=== PATIENT | female | born 1965 | race American Indian/Alaskan Native ===

== ENCOUNTER 2018-01-19 14:19 | Emergency (ER) | payer MEDICAID ==
--- NOTE | 2018-01-19 15:14 | Emergency Department Report ---
Chief Complaint: Chest Pain Stated Complaint: CHEST PAIN Time Seen by Provider: 01/19/18 15:08 - HPI History of Present Illness: 52-year-old female presents to the emergency department with complaint of midsternal chest pain with some radiation towards the back that worsens when she is taking deep breaths. This is been going on for about 4-5 days. She went to see her primary care physician, Dr. Juárez, who diagnosed her with bronchitis and placed her on steroids and antibiotics. However she has been taking her medications compliantly without any relief. She does have a past medical history of 3 different pulmonary embolisms but she is currently on anticoagulation and has been compliant with this medication as well. No recent travel or sick contacts at home. She does have a trust manager through [facility] but has not seen them in a while. - ROS Review of Systems: Positive for chest pain, cough, shortness of breath, back pain Negative for fever, nausea, vomiting, diaphoresis. - Exam Vital Signs: Vital Signs 01/19/18 14:29 Temperature 99.7 F H Pulse Rate 108 H Respiratory 20 Rate Blood Pressure 141/99 O2 Sat by Pulse 100 Oximetry Physical Exam: Heart and lung sounds are normal to auscultation. Chest pain is not reproducible to palpation of the chest wall. MSE screening note: Focused history and physical exam performed. Due to findings the following was ordered: The EKG does not show any signs of ST elevation MD, ischemia or dysrhythmia. The patient will be moved over to the main side of the emergency department. I have ordered a CBC, CMP, serial troponins and a x-ray of the chest. ED Disposition for MSE Condition: Stable Referrals: PRIMARY CARE, [Primary Care Provider] - 3-5 Days
[2018-01-19 15:33] LABS: Basophils % (Auto) 0.3 % (0.0-1.8); Eosinophils % (Auto) 0.1 % (0.0-4.3); Hematocrit 35.8 % (30.3-42.9); Lymphocytes # (Auto) 1.1 K/mm3 (1.2-5.4); Lymphocytes % (Auto) 10.8 % (13.4-35.0); Mean Corpuscular HGB Conc 34 % (30-34); Mean Corpuscular Hemoglobin 28 pg (28-32); Mean Corpuscular Volume 85 fl (79-97); Monocytes # (Auto) 0.2 K/mm3 (0.0-0.8); Monocytes % (Auto) 2.1 % (0.0-7.3); Platelet Count 342 K/mm3 (140-440); Red Blood Count 4.23 M/mm3 (3.65-5.03)
--- NOTE | 2018-01-19 15:57 | XRay Report ---
FINAL REPORT PROCEDURE: XR CHEST ROUTINE 2V TECHNIQUE: PA and lateral chest radiographs were obtained. CPT 70717 HISTORY: Chest Pain COMPARISON: No prior studies are available for comparison. FINDINGS: Heart: Normal. Mediastinum/Vessels: Normal. Lungs/Pleural space: No infiltrate, effusion, or pneumothorax. Bony thorax: No acute osseous abnormality. Other: IMPRESSION: No radiographic evidence of acute abnormality.
[2018-01-19 16:26] LABS: Alanine Aminotransferase 10 units/L (7-56); Albumin 4.3 g/dL (3.9-5); BUN/Creatinine Ratio 11; Blood Urea Nitrogen 9 mg/dL (7-17); Calcium 9.4 mg/dL (8.4-10.2); Hemolysis Index 1
[2018-01-19] MEDS ORDERED: ASPIRIN PO ONE (18:33)
--- NOTE | 2018-01-19 18:38 | Emergency Department Report ---
<GIUSEPPE MARTIN - Last Filed: 01/19/18 19:54> ED Chest Pain HPI - General Chief Complaint: Chest Pain Stated Complaint: CHEST PAIN Time Seen by Provider: 01/19/18 15:08 Source: patient Mode of arrival: Ambulatory Limitations: No Limitations - History of Present Illness MD Complaint: chest pain -: Gradual Onset: during rest Pain Location: substernal Pain Radiation: none Severity: moderate Severity scale (0 -10): 5 Quality: sharp Consistency: constant Improves With: nothing Worsens With: nothing re: denies: nausea, vomting, diaphoresis Other Symptoms: cough Treatments Prior to Arrival: none Aspirin use within the Past 7 Days: (0) No - Related Data On Oral Contraceptives: No Home Medications Medication Instructions Recorded Confirmed Last Taken LORazepam 0.5 mg PO Q8H PRN 06/05/13 01/19/18 Unknown Oxycodone HCl/Acetaminophen 7.5 mg PO TID PRN 08/13/15 01/19/18 Unknown [Percocet 7.5/325 mg] Sertraline [Zoloft] 50 mg PO QDAY 08/13/15 01/19/18 Unknown ALBUTEROL Inhaler [Proair] 2 puff IH QID PRN 01/19/18 01/19/18 Unknown Cyanocobalamin [Vitamin B-12] 1,000 mcg IM QMONTH 01/19/18 01/19/18 01/05/18 Rivaroxaban [Xarelto] 20 mg PO QDAY 01/19/18 01/19/18 Unknown Topiramate [Topamax] 100 mg PO BID 01/19/18 01/19/18 Unknown Allergies Allergy/AdvReac Type Severity Reaction Status Date / Time methylphenidate HCl Allergy Dizziness Verified 01/19/18 14:29 [From Ritalin] metoclopramide HCl AdvReac Unknown Verified 01/19/18 14:29 [From Reglan] morphine AdvReac Nausea Verified 01/19/18 14:29 Heart Score - HEART Score History: Moderately suspicious EKG: Normal Age: 45-65 Risk factors: 1-2 risk factors Troponin: < normal limit HEART Score: 3 - Critical Actions Critical Actions: 0-3 pts:0.9-1.7%risk of adverse cardiac event.Candidate for discharge ED Review of Systems ROS: Stated complaint: CHEST PAIN Other details as noted in HPI Comment: All other systems reviewed and negative Constitutional: denies: chills, fever Eyes: denies: eye pain ENT: denies: ear pain Respiratory: cough, shortness of breath Cardiovascular: chest pain, palpitations Endocrine: no symptoms reported Gastrointestinal: denies: abdominal pain, nausea, vomiting, diarrhea Genitourinary: denies: urgency, dysuria Musculoskeletal: denies: back pain, joint swelling Skin: denies: rash, lesions Neurological: denies: headache, weakness Psychiatric: denies: anxiety, depression Hematological/Lymphatic: denies: easy bleeding, easy bruising ED Past Medical Hx - Past Medical History Hx Hypertension: Yes Hx Pulmonary Embolism: Yes Hx GERD: Yes - Surgical History Hx Cholecystectomy: Yes Hx Breast Surgery: Yes Additional Surgical History: Hernia repair - Social History Smoking Status: Never Smoker Substance Use Type: None - Medications Home Medications: Home Medications Medication Instructions Recorded Confirmed Last Taken Type LORazepam 0.5 mg PO Q8H PRN 06/05/13 01/19/18 Unknown History Oxycodone HCl/Acetaminophen 7.5 mg PO TID PRN 08/13/15 01/19/18 Unknown History [Percocet 7.5/325 mg] Sertraline [Zoloft] 50 mg PO QDAY 08/13/15 01/19/18 Unknown History ALBUTEROL Inhaler [Proair] 2 puff IH QID PRN 01/19/18 01/19/18 Unknown History Cyanocobalamin [Vitamin B-12] 1,000 mcg IM QMONTH 01/19/18 01/19/18 01/05/18 History Rivaroxaban [Xarelto] 20 mg PO QDAY 01/19/18 01/19/18 Unknown History Topiramate [Topamax] 100 mg PO BID 01/19/18 01/19/18 Unknown History ED Physical Exam - General Limitations: No Limitations General appearance: alert, in no apparent distress - Head Head exam: Present: atraumatic, normocephalic, normal inspection - Eye Eye exam: Present: normal appearance, PERRL, EOMI Pupils: Present: normal accommodation - ENT ENT exam: Present: normal exam, normal orophraynx, mucous membranes moist - Neck Neck exam: Present: normal inspection, full ROM. Absent: tenderness - Respiratory Respiratory exam: Present: normal lung sounds bilaterally. Absent: respiratory distress, wheezes, rales, rhonchi, stridor - Cardiovascular Cardiovascular Exam: Present: normal rhythm, tachycardia, normal heart sounds - GI/Abdominal GI/Abdominal exam: Present: soft, normal bowel sounds. Absent: distended, tenderness, guarding, rebound - Extremities Exam Extremities exam: Present: normal inspection, full ROM, normal capillary refill - Back Exam Back exam: Present: normal inspection, full ROM - Neurological Exam Neurological exam: Present: alert, oriented X3, CN II-XII intact - Psychiatric Psychiatric exam: Present: normal affect, normal mood - Skin Skin exam: Present: warm, dry, intact, normal color. Absent: rash ED Course Vital Signs 01/19/18 01/19/18 01/19/18 14:29 20:34 20:45 Temperature 99.7 F H Pulse Rate 108 H 73 74 Respiratory 20 14 19 Rate Blood Pressure 141/99 120/78 O2 Sat by Pulse 100 99 Oximetry 01/19/18 01/19/18 21:00 21:33 Temperature Pulse Rate 78 78 Respiratory 16 18 Rate Blood Pressure 120/78 O2 Sat by Pulse 100 99 Oximetry - Reevaluation(s) Reevaluation #1: 01/19/18 19:54 Patient care was transitioned to Dr Peguero pending CTA chest with IV contrast. Patient to be dispositioned by Dr Peguero after CT has resulted and re-evaluation completed by him. GREG score - Greg Score Age > 65: (0) No Aspirin use within the Past 7 Days: (0) No 3 or more CAD Risk Factors: (1) Yes 2 or more Angina events in past 24 hrs: (1) Yes Known CAD with more than 50% Stenosis: (0) No Elevated Cardiac Markers: (0) No ST Deviation Greater than 0.5mm: (0) No GREG Score: 2 ED Medical Decision Making - Lab Data Result diagrams: 01/19/18 15:16 01/19/18 15:16 - EKG Data -: EKG Interpreted by Me EKG shows normal: sinus rhythm Rate: normal (99) - EKG Data When compared to previous EKG there are: previous EKG unavailable Interpretation: other (Low voltage, No STEMI.) - Radiology Data Radiology results: report reviewed, image reviewed - Medical Decision Making Chest Pain. R/O Pulmonary Embolism. Critical care attestation.: If time is entered above; I have spent that time in minutes in the direct care of this critically ill patient, excluding procedure time. ED Disposition Clinical Impression: Acute chest pain Disposition: DC-01 TO HOME OR SELFCARE Does the pt Need Aspirin: Yes Condition: Stable Instructions: Chest Pain (ED), Chronic Bronchitis (ED) Referrals: PRIMARY CARE,MD [Primary Care Provider] - 3-5 Days <SHLOMO PEGUERO - Last Filed: 01/19/18 22:23> ED Medical Decision Making - Lab Data Result diagrams: 01/19/18 15:16 01/19/18 15:16 ED Disposition Is pt being admited?: No Does the pt Need Aspirin: No Time of Disposition: 22:23
[2018-01-19] MEDS ORDERED: LEVAQUIN 750MG/150ML 750 MG/150 ML BAG IV ONE (18:39)
[2018-01-19 19:32] LABS: INR 0.95 (0.87-1.13); Partial Thromboplastin Time 29.2 Sec. (24.2-36.6)
--- NOTE | 2018-01-19 20:28 | Cat Scan Report ---
FINAL REPORT EXAM: CT ANGIO CHEST HISTORY: Chest pain, h/o pulmonary embolism TECHNIQUE: CT chest CT angiogram with intravenous contrast. Multiplanar and 3D maximum intensity reconstructions PRIORS: None. FINDINGS: There is no evidence of filling defect within the central pulmonary vasculature to suggest the presence of acute pulmonary embolus. No evidence of mediastinal pathologic lymph node enlargement Heart and great vessels are unremarkable. The aorta is normal in caliber. No focal pulmonary infiltrate identified. No pleural fluid collection seen. No acute pulmonary abnormality noted. There is evidence for prior gastric surgery. IMPRESSION: Evidence for prior gastric surgery No CT evidence of acute pulmonary embolus
[2018-01-19] MEDS ORDERED: TORADOL IV ONE (22:20)
[2018-01-19] MEDS ORDERED: SUBLIMAZE IV ONE (22:20)
[2018-01-20 00:20] VITALS: BP 104/58
== END 2018-01-20 00:22 | disposition home or self-care (01) ==
LOC: ED 14:19
DX: R07.89 Other chest pain (principal); I10 Essential (primary) hypertension; K21.9 Gastro-esophageal reflux disease without esophagitis; Z90.49 Acquired absence of other specified parts of digestive tract; Z88.6 Allergy status to analgesic agent; Z88.8 Allergy status to other drugs, medicaments and biological substances
CPT/HCPCS: 36415; 71046; 71275; 80053; 83880; 84484; 85025; 85610; 85730; 87040; 93005; 93010; 96365; 96366; 96375; 99285; J1885; J1956; J3010; Q9967

== ENCOUNTER 2018-09-23 19:13 | Emergency (ER) | payer MEDICAID ==
--- NOTE | 2018-09-23 20:15 | Emergency Department Report ---
Chief Complaint: High BP Stated Complaint: BLOOD PRESSURE ISSUE Time Seen by Provider: 09/23/18 20:10 - HPI History of Present Illness: This is a 53 y.o. female that presents to ER with elevated blood pressure, dizziness, and headache for 3 days. Patient was recently diagnosed with HTN 3 days ago by PCP. She was started on HCTZ 12.5 mg po daily. Patient states she was planning on walking in to PCP tomorrow but got so dizzy today. PMH GERD, HTN, Asthma, & PE - Exam Vital Signs: Vital Signs 09/23/18 20:11 Temperature 97.9 F Pulse Rate 118 H Respiratory 20 Rate Blood Pressure 191/110 O2 Sat by Pulse 99 Oximetry MSE screening note: Focused history and physical exam performed. Due to findings the following was ordered: [facility] for further evaluation. ED Disposition for MSE Condition: Stable
[2018-09-23] MEDS ORDERED: CATAPRES PO ONE (20:21)
[2018-09-23] MEDS ORDERED: IBUPROFEN PO ONE (20:21)
[2018-09-23] MEDS ORDERED: CATAPRES ONE (20:24)
[2018-09-23] MEDS ORDERED: IBUPROFEN ONE (20:25)
[2018-09-23 21:51] LABS: Alanine Aminotransferase 9 units/L (7-56); Albumin 4.6 g/dL (3.9-5); BUN/Creatinine Ratio 11; Blood Urea Nitrogen 12 mg/dL (7-17); Calcium 10.7 mg/dL (8.4-10.2); Hemolysis Index 43
[2018-09-23 22:55] VITALS: BP 140/88
== END 2018-09-24 11:17 | disposition left against medical advice (07) ==
LOC: ED 19:13
DX: I10 Essential (primary) hypertension (principal); Z53.21 Procedure and treatment not carried out due to patient leaving prior to being seen by health care provider
CPT/HCPCS: 36415; 80053

== ENCOUNTER 2019-08-19 11:49 | Outpatient (CLI) | payer MEDICAID ==
--- NOTE | 2019-08-19 16:18 | XRay Report ---
CHEST 2 VIEWS INDICATION: COUGH AND CHEST PAIN. COMPARISON: 01/19/2018 FINDINGS: Support devices: None. Heart: Within normal limits. Pulmonary vasculature: Normal. Lungs/pleura: The lungs are normally expanded and clear. No airspace disease or pleural effusion. No pulmonary nodule or mass. No pneumothorax. Additional findings: None. IMPRESSION: 1. No acute findings. Signer Name: Senthil Hodge MD Signed: 08/19/2019 4:13 PM Workstation Name: [id number]
== END 2019-08-19 11:50 | disposition home or self-care (01) ==
LOC: SPVIMAG 11:49
PROVIDERS: ATTEND Internal Medicine Hematology
DX: I27.82 Chronic pulmonary embolism (principal); I26.99 Other pulmonary embolism without acute cor pulmonale; R05 Cough; R07.9 Chest pain, unspecified
CPT/HCPCS: 71046

== ENCOUNTER 2020-02-11 22:20 | Emergency (ER) | payer MEDICAID ==
[2020-02-11 22:55] VITALS: BP 144/95
[2020-02-12] MEDS ORDERED: ASPIRIN 325 MG TAB PO ONE (00:02)
[2020-02-12 00:57] LABS: Basophils % (Auto) 0.5 % (0.0-1.8); Eosinophils # (Auto) 0.1 K/mm3 (0.0-0.4); Hematocrit 46.4 % (30.3-42.9); Hemoglobin 15.3 gm/dl (10.1-14.3); Lymphocytes % (Auto) 22.8 % (13.4-35.0); Mean Corpuscular HGB Conc 33 % (30-34); Mean Corpuscular Volume 87 fl (79-97); Monocytes # (Auto) 0.7 K/mm3 (0.0-0.8); Monocytes % (Auto) 7.9 % (0.0-7.3); Platelet Count 277 K/mm3 (140-440); Red Blood Count 5.32 M/mm3 (3.65-5.03); Red Cell Distribution Width 15.1 % (13.2-15.2)
--- NOTE | 2020-02-12 01:24 | XRay Report ---
CHEST 1 VIEW, 02/12/2020 12:00 AM CLINICAL INFORMATION/INDICATION: Chest pain COMPARISON: Chest radiograph, 08/19/2019 FINDINGS: SUPPORT DEVICES: None. HEART: The cardiac silhouette is normal in size. LUNGS/PLEURA: The lungs are clear of focal airspace disease or significant pleural effusion. ADDITIONAL FINDINGS: No additional acute findings. IMPRESSION: 1. No evidence of acute cardiopulmonary process. Signer Name: Kizzy Portillo MD Signed: 02/12/2020 1:20 AM Workstation Name: [id number]
[2020-02-12 01:25] LABS: BUN/Creatinine Ratio 10; Blood Urea Nitrogen 10 mg/dL (7-17); Hemolysis Index 34
== END 2020-02-12 09:40 ==
LOC: ED 22:20
DX: R07.89 Other chest pain (principal); R42 Dizziness and giddiness; Z53.21 Procedure and treatment not carried out due to patient leaving prior to being seen by health care provider
CPT/HCPCS: 36415; 71045; 80048; 84484; 85025; 93005

== ENCOUNTER 2020-11-22 09:19 | Outpatient (CLI) | payer MEDICAID ==
--- NOTE | 2020-11-22 11:08 | Fluoroscopy Report ---
BARIUM SWALLOW Indication: DYSPHAGIA. Technique: Single and double contrast barium technique utilized to evaluate the esophagus. FINDINGS: To begin the exam, swallowing was evaluated in the lateral position under direct fluorosco py. Swallowing was normal. Fundoplication changes are suspected near the esophageal hiatus. The esophagus appears normal caliber and mucosal pattern throughout. No critical stenosis or mucosal lesion is appreciated. There was mil d delay in esophageal emptying throughout this exam. Occasional tertiary contractions were also witne ssed consistent with mild dysmotility or esophagitis. No hiatal hernia or reflux was witnessed during this exam. The visualized stomach and proximal duodenum are unremarkable. The patient was able to ingest and pass a barium tablet without difficulty. IMPRESSION: Fundoplication changes are suspected, correlate with history. Mild delay in esophageal e mptying and mild esophageal dysmotility was witnessed during this exam. Fluoroscopic time: 3.6 minutes Number of fluoroscopic images: 46 Signer Name: Flaquito Zarate Jr, MD Signed: 11/22/2020 11:03 AM Workstation Name: [id number]
== END 2020-11-22 09:20 | disposition home or self-care (01) ==
LOC: FLUORO 09:19
PROVIDERS: ATTEND Internal Medicine Gastroenterology
DX: R13.10 Dysphagia, unspecified (principal)
CPT/HCPCS: 74220